=== PATIENT | male | born 1965 | race Caucasian/White ===

== ENCOUNTER 2017-09-02 13:53 | Emergency (ER) | payer OTHER ==
[2017-09-02 14:26] VITALS: BP 164/87
[2017-09-02] MEDS ORDERED: Lactated Ringers 1,000 ML IV ONE ×2 (14:27→14:33)
--- NOTE | 2017-09-02 14:34 | ERPHSYRPT ---
- History of Present Illness Time Seen by Provider: 09/02/17 14:20 Source: patient Patient Subjective Stated Complaint: pt reports high blood sugar this am-states he was dx yesterday-reports increased thirst and feeling tired-states his mother of dm and he is very worried he will to Triage Nursing Assessment: pt ambulatory to ed very anxious and concerned- denies pain-moving all extremities with ease-resp easy and nonlabored-pupils responsive Physician History: CC: not feeling well Hx: 51 y/o patient of Dr Samuel with newly diagnosed diabetes. He started metformin yesterday and has had three doses. He feels worse, malaise, sugar > 500 so office told him to come to ER. No chest or abd pain. No N/V/D. Polyuria and thristy. He apparently is scheduled for a stress test next week. Vit D low , AIC markedly elevated, triglycerides markedly elevated. Timing/Duration: today Severity: moderate Allergies/Adverse Reactions: Penicillins Allergy (Verified 09/02/17 14:25) mushrooms Allergy (Severe, Uncoded 09/02/17 14:25) Home Medications: Lisinopril/Hydrochlorothiazide [Lisinopril-Hctz 10-12.5 mg Tab] 1 each PO DAILY 04/29/17 [History] Cholecalciferol (Vitamin D3) [Vitamin D] 1,000 unit PO WEEKLY 09/02/17 [ History] Fenofibrate Nanocrystallized [Fenofibrate] 145 mg PO DAILY 09/02/17 [History] Loratadine 10 mg [Claritin 10 mg] 10 mg PO DAILY 09/02/17 [History] Metformin HCl 500 mg [Glucophage 500 MG] 500 mg PO BID 09/02/17 [History] Ropinirole HCl 0.5 mg [Requip 0.5 MG] 0.5 mg PO UD 09/02/17 [History] Hx Tetanus, Diphtheria Vaccination/Date Given: No Hx Influenza Vaccination/Date Given: No Hx Pneumococcal Vaccination/Date Given: No Immunizations Up to Date: Yes - Review of Systems Constitutional: Fatigue, Malaise, Weakness, No Fever, No Chills Eyes: No Symptoms, No Vision Changes Ears, Nose, & Throat: No Symptoms Respiratory: No Cough, No Dyspnea Cardiac: No Chest Pain, No Palpitations, No Syncope Abdominal/Gastrointestinal: No Abdominal Pain, No Nausea, No Vomiting, No Diarrhea Genitourinary Symptoms: Frequency, No Dysuria Musculoskeletal: No Back Pain Skin: No Rash All Other Systems: Reviewed and Negative - Past Medical History Pertinent Past Medical History: Yes Neurological History: No Pertinent History ENT History: No Pertinent History Cardiac History: No Pertinent History Respiratory History: No Pertinent History Endocrine Medical History: Diabetes Type II Musculoskeletal History: No Pertinent History GI Medical History: No Pertinent History History: No Pertinent History Psycho-Social History: Anxiety Male Reproductive Disorders: No Pertinent History - Past Surgical History Past Surgical History: No - Social History Smoking Status: Current every day smoker How long have you smoked: yrs Exposure to second hand smoke: Yes Drug Use: none 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) - Nursing Vital Signs Nursing Vital Signs: Initial Vital Signs Temperature 98.7 F 09/02/17 14:20 Pulse Rate 110 H 09/02/17 14:20 Respiratory Rate 18 09/02/17 14:20 Blood Pressure 164/87 09/02/17 14:20 O2 Sat by Pulse Oximetry 98 09/02/17 14:20 Pain Scale Pain Intensity 0 - Physical Exam General Appearance: alert Eye Exam: PERRL/EOMI Ears, Nose, Throat Exam: normal ENT inspection, dry mucous membranes Neck Exam: normal inspection, non-tender, supple Respiratory Exam: normal breath sounds Cardiovascular Exam: regular rate/rhythm, No murmur Gastrointestinal/Abdomen Exam: soft, No tenderness, No distention Male Genitalia Exam: normal genitalia Back Exam: normal inspection, No CVA tenderness Extremity Exam: normal inspection, normal range of motion Neurologic Exam: alert, oriented x 3, cooperative, sensation nml, No motor deficits Skin Exam: warm, dry, No rash SpO2 Interpretation: normal SpO2: 98 Oxygen Delivery: Room Air - Course Nursing assessment & vital signs reviewed: Yes EKG Interpreted by Me: RATE (102), Sinus Rhythm, NORMAL AXIS, NORMAL INTERVALS ( [id number]), Other (borderline qrs widening, nonspecific changes) Ordered Tests: Active Orders 24 hr Category Date Time Status Clean Catch Urine Specimen STAT Care 09/02/17 14:26 Active EKG-ER Only STAT Care 09/02/17 14:26 Active IV Insertion STAT Care 09/02/17 14:26 Active CBC W DIFF Stat Lab 09/02/17 14:00 Completed CMP Routine Lab 09/02/17 Completed Glucose,Critical Care Urgent Lab 09/02/17 14:33 Completed LIPASE Routine Lab 09/02/17 Completed Lactic Acid Stat Lab 09/02/17 14:33 Completed MAGNESIUM Routine Lab 09/02/17 Completed TROPONIN Q3H Lab 09/02/17 Completed TROPONIN Q3H Lab 09/02/17 17:45 Ordered TROPONIN Q3H Lab 09/02/17 20:45 Ordered TROPONIN Q3H Lab 09/02/17 23:45 Ordered TROPONIN Q3H Lab 09/03/17 02:45 Ordered UA W/RFX UR CULTURE Stat Lab 09/02/17 15:05 Completed VENOUS BLOOD GAS Urgent Lab 09/02/17 14:33 Completed Medication Summary Discontinued Medications Generic Name Dose Route Start Last Admin Trade Name Freq PRN Reason Stop Dose Admin Glipizide 5 mg 09/02/17 16:18 Glucotrol Xl 5 Mg PO 09/02/17 16:19 STAT ONE Lactated Ringer's 1,000 mls @ 999 mls/hr 09/02/17 14:27 09/02/17 14:48 Lactated Ringers IV 09/02/17 15:27 999 mls/hr .Q1H1M ONE Administration Lactated Ringer's Confirm 09/02/17 14:33 Lactated Ringers Administered 09/02/17 14:34 Dose 1,000 mls @ ud IV .STK-MED ONE Insulin Aspart 10 unit 09/02/17 15:06 09/02/17 15:16 Novolog Insulin SQ 09/02/17 15:07 10 unit STAT ONE Administration Insulin Aspart Confirm 09/02/17 15:12 Novolog Insulin Administered 09/02/17 15:13 Dose 10 unit .ROUTE .STK-MED ONE Lab/Rad Data: Laboratory Result Diagrams 09/02/17 14:00 09/02/17 Unknown Laboratory Results 09/02/17 09/02/17 09/02/17 Range/Units Unknown 15:05 14:33 WBC (4.0-10.5) K/mm3 RBC (4.1-5.6) M/mm3 Hgb (12.5-18.0) gm/dl Hct (42-50) % MCV (78-100) fl MCH (26-32) pg MCHC (32-36) g/dl RDW (11.5-14.0) % Plt Count (150-450) K/mm3 MPV (6-9.5) fl Gran % (36.0-66.0) % Lymphocytes % (24.0-44.0) % Monocytes % (0.0-12.0) % Eosinophils % (0.00-5.0) % Basophils % (0.0-0.4) % Basophils # (0-0.4) VBG pH (7.32-7.42) VBG pCO2 at Pat Temp (42-55) mm/Hg VBG pO2 at Pat Temp (25-40) mm/Hg VBG HCO3 (22-28) meq/L VBG O2 Sat (Marisel) (95-100) VBG Base Excess (-2.0-2.0) VBG Hemoglobin VBG Carboxyhemoglobin (0.0-6.9) % T HGB POC Potassium (3.5-5.1) Glucose 434 H (70-110) Sodium 133 L (137-145) mmol/L Potassium 4.6 (3.5-5.1) mmol/L Chloride 97 L (98-107) mEq/L Carbon Dioxide 20 L (22-30) mmol/L Anion Gap 21.0 H (5-15) MEQ/L BUN 27 H (9-20) mg/dl Creatinine 1.02 (0.66-1.25) mg/dl Estimated GFR > 60 ML/MIN Lactic Acid 1.6 (0.4-2.0) Calcium 9.6 (8.4-10.2) mg/dL Magnesium 1.8 (1.6-2.3) mg/dL Total Bilirubin 0.90 (0.2-1.3) mg/d? AST 20 (17-59) U/L ALT 19 (0-50) U/L Alkaline Phosphatase 156 H (38-126) U/L Troponin I < 0.012 (0.000-0.034) ng/ml Serum Total Protein 7.7 (6.3-8.2) mg/dl Albumin 4.4 (3.5-5.0) g/dl Lipase 101 (23-300) U/L Ur Collection Type CCMS Urine Color YELLOW (YELLOW) Urine Appearance CLEAR (CLEAR) Urine pH 5.0 (5-6) Ur Specific [place] 1.015 (1.005-1.025) Urine Protein NEGATIVE (Negative) Urine Ketones MODERATE (NEGATIVE) Urine Blood NEGATIVE (0-5) Shabbir/ul Urine Nitrite NEGATIVE (NEGATIVE) Urine Bilirubin NEGATIVE (NEGATIVE) Urine Urobilinogen NORMAL (0-1) mg/dL Ur Leukocyte Esterase NEGATIVE (NEGATIVE) Urine Culture Reflexed NO (NO) Urine Glucose 1000 (NEGATIVE) mg/dL Specimen Received T@[id number] 09/02/17 09/02/17 Range/Units 14:33 14:00 WBC 8.7 (4.0-10.5) K/mm3 RBC 4.67 (4.1-5.6) M/mm3 Hgb 14.7 (12.5-18.0) gm/dl Hct 40.3 L (42-50) % MCV 86.3 (78-100) fl MCH 31.5 (26-32) pg MCHC 36.5 H (32-36) g/dl RDW 12.1 (11.5-14.0) % Plt Count 175 (150-450) K/mm3 MPV 13.3 H (6-9.5) fl Gran % 65.9 (36.0-66.0) % Lymphocytes % 26.1 (24.0-44.0) % Monocytes % 5.5 (0.0-12.0) % Eosinophils % 2.0 (0.00-5.0) % Basophils % 0.5 (0.0-0.4) % Basophils # 0.04 (0-0.4) VBG pH 7.39 (7.32-7.42) VBG pCO2 at Pat Temp 35 L (42-55) mm/Hg VBG pO2 at Pat Temp 49 H (25-40) mm/Hg VBG HCO3 21.2 L (22-28) meq/L VBG O2 Sat (Marisel) 92.9 L (95-100) VBG Base Excess -3.1 L (-2.0-2.0) VBG Hemoglobin 15.5 VBG Carboxyhemoglobin 8.8 H* (0.0-6.9) % T HGB POC Potassium 4.4 (3.5-5.1) Glucose 451 H (70-110) Sodium (137-145) mmol/L Potassium (3.5-5.1) mmol/L Chloride (98-107) mEq/L Carbon Dioxide (22-30) mmol/L Anion Gap (5-15) MEQ/L BUN (9-20) mg/dl Creatinine (0.66-1.25) mg/dl Estimated GFR ML/MIN Lactic Acid (0.4-2.0) Calcium (8.4-10.2) mg/dL Magnesium (1.6-2.3) mg/dL Total Bilirubin (0.2-1.3) mg/d? AST (17-59) U/L ALT (0-50) U/L Alkaline Phosphatase (38-126) U/L Troponin I (0.000-0.034) ng/ml Serum Total Protein (6.3-8.2) mg/dl Albumin (3.5-5.0) g/dl Lipase (23-300) U/L Ur Collection Type Urine Color (YELLOW) Urine Appearance (CLEAR) Urine pH (5-6) Ur Specific [place] (1.005-1.025) Urine Protein (Negative) Urine Ketones (NEGATIVE) Urine Blood (0-5) Shabbir/ul Urine Nitrite (NEGATIVE) Urine Bilirubin (NEGATIVE) Urine Urobilinogen (0-1) mg/dL Ur Leukocyte Esterase (NEGATIVE) Urine Culture Reflexed (NO) Urine Glucose (NEGATIVE) mg/dL Specimen Received - Progress Progress Note: 09/02/17 16:29 Pt stable. He is worried about DM. He is anxious. He is a smoker and was counselled about smoking cessation. No chest pain or cardiac symptoms. Called Dr Justin Samuel and will add glucotrol xl and have office follow up. He has stress test appt scheduled Wednesday and colonoscopy Wednesday next week. Will release with instr. Also suggested diabetic education. Counseled pt/family regarding: lab results, diagnosis, need for follow-up, smoking cessation - Departure Time of Disposition: 16:31 Departure Disposition: Home Clinical Impression: Metabolic syndrome Type 2 diabetes mellitus Qualifiers: Diabetes mellitus complication status: without complication Diabetes mellitus shelter insulin use: without exterminator helper termite use Qualified Code(s): E11.9 - Type 2 diabetes mellitus without complications Condition: Stable Critical Care Time: No Referrals: ROSALIND PAULINO [NON-STAFF PHY W/O PRIVILEGES] - Instructions: Type 2 Diabetes, Quitting Smoking Additional Instructions: See JUWAN Paulino October 09 at 3PM. Stop smoking. Continue metformin 500mg twice a day. Rx glucotrol xl 5mg daily- next dose in AM with breakfast. Check sugar in AM, 2 hours after lunch, and before bedtime and record. Return for any problems or concerns. Prescriptions: Glipizide Xl 5 mg [Glucotrol Xl 5 MG] 5 mg PO DAILY #30 tab
[2017-09-02 14:42] LABS: BASOPHIL % 0.5 % (0.0-0.4); Basophil (Absolute #) 0.04 (0-0.4); Eosinophil (Absolute #) 0.17 (0-0.5); Granulocyte Absolute (ANC) 5.75 (1.4-6.9); Granulocytes % 65.9 % (36.0-66.0); Hematocrit 40.3 % (42-50); Hemoglobin 14.7 gm/dl (12.5-18.0); Lymphocyte (Absolute #) 2.27 (1.0-4.6); Lymphocytes % 26.1 % (24.0-44.0); Mean Cell Volume 86.3 fl (78-100); Mean Corpuscular Hemoglobin 31.5 pg (26-32); Mean Corpuscular Hgb Concent. 36.5 g/dl (32-36); Mean Platelet Volume 13.3 fl (6-9.5); Monocyte (Absolute #) 0.48 (0.0-1.3); Monocytes % 5.5 % (0.0-12.0); Platelet Count 175 K/mm3 (150-450); Red Blood Count 4.67 M/mm3 (4.1-5.6); Red Cell Distribution Width 12.1 % (11.5-14.0); White Blood Count 8.7 K/mm3 (4.0-10.5)
[2017-09-02 14:44] LABS: VBG BASE EXCESS -3.1 (-2.0-2.0); VBG HCO3- 21.2 meq/L (22-28); VBG HEMOGLOBIN 15.5; VBG O2 SATURATION 92.9 (95-100); VBG POTASSIUM 4.4 (3.5-5.1); VBG pH 7.39 (7.32-7.42)
[2017-09-02 14:45] LABS: VBG CARBOXYHEMOGLOBIN 8.8 % T HGB (0.0-6.9)
[2017-09-02 15:02] LABS: ALBUMIN 4.4 g/dl (3.5-5.0); ALKALINE PHOSPHATASE 156 U/L (38-126); BLOOD UREA NITROGEN 27 mg/dl (9-20); CHLORIDE 97 mEq/L (98-107); Calcium 9.6 mg/dL (8.4-10.2); Carbon Dioxide 20 mmol/L (22-30); Creatinine 1 1.02 mg/dl (0.66-1.25); Glucose 434 mg/dL (74-106); LIPASE 101 U/L (23-300); Potassium 4.6 mmol/L (3.5-5.1); SGOT/AST 20 U/L (17-59); SGPT/ALT 19 U/L (0-50); SODIUM 133 mmol/L (137-145); Total Protein 7.7 mg/dl (6.3-8.2)
[2017-09-02] MEDS ORDERED: NovoLOG Insulin SQ ONE (15:06)
[2017-09-02] MEDS ORDERED: NovoLOG Insulin ONE (15:12)
[2017-09-02 15:14] LABS: TROPONIN < 0.012 ng/ml (0.000-0.034)
[2017-09-02 15:18] VITALS: PULSE 99
[2017-09-02 15:25] LABS: Appearance CLEAR (CLEAR); Leukocyte Esterase NEGATIVE (NEGATIVE); Nitrite NEGATIVE (NEGATIVE); Specific Gravity 1.015 (1.005-1.025)
[2017-09-02 15:26] LABS: Glucose 1000 mg/dL (NEGATIVE); Protein,Urine Dip NEGATIVE (Negative)
[2017-09-02 15:27] LABS: Bilirubin NEGATIVE (NEGATIVE); Blood NEGATIVE Ery/ul (0-5); Ketones MODERATE (NEGATIVE); Urobilinogen NORMAL mg/dL (0-1)
[2017-09-02] MEDS ORDERED: Glucotrol Xl 5 MG PO ONE (16:18)
[2017-09-02 16:34] VITALS: O2SAT 98
== END 2017-09-02 17:24 | disposition home or self-care (01) ==
LOC: ED 13:53
DX: E88.81 Metabolic syndrome and other insulin resistance (principal); E11.9 Type 2 diabetes mellitus without complications; Z79.899 Other long term (current) drug therapy
CPT/HCPCS: 36000; 36415; 80053; 81002; 82805; 82947; 82962; 83605; 83690; 83735; 84484; 85025; 93005; 96360; 96372; 99284; 99285; A9270-GY

== ENCOUNTER → 2017-09-10 | Day surgery (SDC) | payer OTHER | LOC: SDC 05:48 | PROVIDERS: ATTEND Family Medicine | DX: Z53.8 Procedure and treatment not carried out for other reasons (principal) ==

== ENCOUNTER 2017-10-15 05:52 | Day surgery (SDC) | payer OTHER ==
[2017-10-15] MEDS ORDERED: Versed 2 MG/2 ML Injection IV ONE (05:53)
[2017-10-15] MEDS ORDERED: DIPRIVAN 200 MG/20 ML IV ONE (05:53)
[2017-10-15] MEDS ORDERED: Lactated Ringers 1,000 ML IV SCH (06:30)
[2017-10-15 09:22] VITALS: BP 105/75; PULSE 64; O2SAT 96
--- NOTE | 2017-10-15 11:45 | OP ---
SURGERY DATE/TIME: 10/15/2017 0756 PREOPERATIVE DIAGNOSIS: Screening exam. POSTOPERATIVE DIAGNOSIS: Multiple colon polyps in rectosigmoid area. PROCEDURE: Colonoscopy with biopsy. SURGEON: Dr. Nunez. ANESTHESIA: MAC. Medications given by anesthesia department. HISTORY: The patient is a 52 year-old white male patient presenting now for screening colonoscopy. He was appraised of the risks of the procedure including the risk of perforation, phlebitis, untoward reaction to medication, bleeding and missed lesions. The patient verbalized his understanding and desired to have the procedure performed. DESCRIPTION OF PROCEDURE: The patient was given the medications by the anesthesia department. He had continuous pulse oximetry, ECG monitoring, intermittent blood pressure monitoring and tidal CO2 monitoring during the examination. He was placed in the left lateral decubitus position. A digital rectal examination was performed and revealed normal anal sphincter tone, no masses and normal prostate. The flexible Olympus pediatric colonoscope was used to intubate the rectum. A view of the colon was developed sequentially to the cecum. Upon insertion and withdrawal, there was noted one small polyp in the transverse colon this is biopsied to rule out any adenomatous change. There were noted to be multiple polyps in the rectosigmoid area including one fairly close to the anal verge. These were measuring approximately 0.5 to 1.2 cm in size. Multiple biopsies were obtained to rule out any evidence of adenomatous change. A retroflex view in the rectum was obtained as well and again was noted the polyps. The scope was removed from the patient who tolerated the procedure well and was sent back to OP recovery in good condition. The prep was noted to be fair.
== END 2017-10-15 09:10 | disposition home or self-care (01) ==
LOC: SDC 05:52
PROVIDERS: ATTEND Family Medicine
PROC: 0DBN8ZX Excision of Sigmoid Colon, Via Natural or Artificial Opening Endoscopic, Diagnostic (ICD-10-PCS; principal; 2017-10-15)
PROC: 0DBL8ZX Excision of Transverse Colon, Via Natural or Artificial Opening Endoscopic, Diagnostic (ICD-10-PCS; 2017-10-15)
DX: K63.5 Polyp of colon (principal); Z12.11 Encounter for screening for malignant neoplasm of colon; E11.9 Type 2 diabetes mellitus without complications; E78.5 Hyperlipidemia, unspecified; I10 Essential (primary) hypertension
CPT/HCPCS: 82962; 88305; J2250; J2704

== ENCOUNTER 2018-03-10 06:36 | Day surgery (SDC) | payer OTHER ==
[~2018-03-10 06:36] MED LIST: Lactated Ringers 1,000 ML IV SCH
[2018-03-10] MEDS ORDERED: DIPRIVAN 200 MG/20 ML IV ONE (06:37)
[2018-03-10] MEDS ORDERED: Lactated Ringers 1,000 ML IV ONE (06:57)
--- NOTE | 2018-03-10 07:44 | HP ---
DATE OF SURGERY: 03/10/2018 ANTICIPATED PROCEDURE: Colonoscopy. HISTORY OF PRESENT ILLNESS: The patient has had multiple rectal polyps and presents for colonoscopy. PAST MEDICAL HISTORY: ALLERGIES: NONE. MEDICATIONS: Lisinopril, Metformin, potassium chloride, ropinirole. PAST SURGICAL HISTORY: None recent. SOCIAL HISTORY: Half pack per day. ETOH negative. FAMILY HISTORY: Negative. REVIEW OF SYSTEMS: Diabetes, heart disease, hypertension. PHYSICAL EXAMINATION: VITAL SIGNS: Normal. CHEST: Clear. COR: Regular. ABDOMEN: No palpable organomegaly or mass. IMPRESSION: History of rectal polyps. PLAN: Colonoscopy.
[2018-03-10 10:12] VITALS: O2SAT 99
[2018-03-10 10:17] VITALS: PULSE 68
[2018-03-10 10:30] VITALS: BP 95/61
--- NOTE | 2018-03-11 15:56 | OP ---
SURGERY DATE: 03/10/18 SURGERY TIME: 911 PREOPERATIVE DIAGNOSIS: 1. MULTIPLE POLYPS. POSTOPERATIVE DIAGNOSIS: 1. 8 POLYPS. PROCEDURE: 1. Colonoscopy complete to cecum with hot polypectomy X 8 submitted in 2 jars, 3 and 5. SURGEON: Spencer Sahu M.D. ANESTHESIA: MAC. COMPLICATIONS: None. CONDITION: Stable. INDICATION: Patient has multiple polyps. Was referred by Dr. Nunez and LOKI Villavicencio. OPERATIVE PROCEDURE: Taken to endoscopy. MAC sedation provided. Scope advanced to the cecum. Circumferential withdrawal. 3 polyps in one area and 5 polyps in another area were taken and submitted in two separate jars. Recommended follow-up in 1 year. This gentleman is quite a polyp former. I would like to do a colonoscopy in 1 year.
== END 2018-03-10 10:30 | disposition home or self-care (01) ==
LOC: SDC 06:36
PROVIDERS: ATTEND Surgery
DX: K63.5 Polyp of colon (principal); Z87.19 Personal history of other diseases of the digestive system; E11.9 Type 2 diabetes mellitus without complications; Z79.4 Long term (current) use of insulin; I51.9 Heart disease, unspecified; I10 Essential (primary) hypertension; Z79.899 Other long term (current) drug therapy; Z72.0 Tobacco use
CPT/HCPCS: 82962; 88305; 94250; J2704

== ENCOUNTER 2020-08-15 09:15 | Day surgery (SDC) | payer OTHER ==
--- NOTE | 2020-08-08 08:13 | HP ---
DATE OF SURGERY: 08/15/2020 HISTORY OF PRESENT ILLNESS: The patient is a 54 year-old male who presents with complaints of some bloating, some nausea and vomiting. It has been going on for a couple of weeks. He is not sure of triggers. He denies any specific gallbladder attacks. He states has some diffuse upper abdominal pain particularly in the mid to right upper quadrant. His HIDA scan was 26%. PAST MEDICAL HISTORY: Diabetes, hypertension, fibromyalgia, neuropathy. PAST SURGICAL HISTORY: None. ALLERGIES: PENICILLIN. MUSHROOMS. MEDICATIONS: Amlodipine, vitamin D, Fenofibrate nanocrystallized, fluticasone. FAMILY HISTORY: Skin cancer. Heart disease. Diabetes. Hypertension. SOCIAL HISTORY: Former smoker, rarely uses alcohol. REVIEW OF SYSTEMS: CONSTITUTIONAL: Denies fever or chills. CHEST: Denies shortness of breath. CVS: Denies chest pain. ABDOMEN: Reports upper abdominal pain, nausea, vomiting. Denies diarrhea, constipation or rectal bleeding. INTEGUMENTARY: Negative. PHYSICAL EXAMINATION: GENERAL: No acute distress. CHEST: Nonlabored. No shortness of breath. CVS: Regular rate and rhythm. ABDOMEN: Soft, nontender to palpation. EXTREMITIES: No edema. NEUROLOGIC: Alert. PSYCHIATRIC: Appropriate. IMPRESSION: Biliary dyskinesia PLAN: Laparoscopic cholecystectomy with Dr. Spencer Sahu. As dictated by Fanta Cruz NP.
[~2020-08-15 09:15] MED LIST changes: +Lactated Ringers 0 ML IV ONE; -Lactated Ringers 1,000 ML IV SCH; +Sensorcaine 0.25% 10 ML ONE
[2020-08-15] MEDS ORDERED: Sodium Chloride 0.9% 1000 ML 1,000 ML IV SCH (09:45)
[2020-08-15] MEDS ORDERED: Levofloxacin 500MG/100ML D5W 500 MG/100 ML BAG IV ONE (09:46)
[2020-08-15] MEDS ORDERED: CLINDAMYCIN-D5W 900 MG/50 ML*** 900 MG/50 ML BAG IV SCH (10:00)
[2020-08-15 11:17] LABS: ANION GAP 11.5 MEQ/L (5-15); Calcium 9.3 mg/dL (8.4-10.2); Creatinine 1 1.68 mg/dL (0.66-1.25); EST GLOMERULAR FILTRATION RATE 45.7 ML/MIN; Potassium 4.5 mmol/L (3.5-5.1)
[2020-08-15] MEDS ORDERED: Zemuron 100 MG/10 ML ONE (12:29)
[2020-08-15] MEDS ORDERED: DIPRIVAN 200 MG/20 ML IV ONE (12:29)
[2020-08-15] MEDS ORDERED: Versed 2 MG/2 ML Injection ONE (12:30)
[2020-08-15] MEDS ORDERED: SUBLIMAZE 250 MCG/5 ML ONE (12:30)
[2020-08-15] MEDS ORDERED: Sodium Chloride 0.9% 1000 ML 1,000 ML ONE (12:39)
[2020-08-15] MEDS ORDERED: BRIDION 200MG/2ML IV ONE (13:07)
--- NOTE | 2020-08-15 13:18 | OP ---
SURGERY DATE/TIME: 08/15/2020 1225 PREOPERATIVE DIAGNOSIS: Gallbladder dyskinesia. POSTOPERATIVE DIAGNOSIS: Gallbladder dyskinesia with a very small cystic duct 0.5 mm. PROCEDURE: Laparoscopic cholecystectomy. SURGEON: Dr. Spencer Sahu. REDUCING SYSTEM OPERATOR: ISAAC Prater. ANESTHESIA: General. ESTIMATED BLOOD LOSS: None. COMPLICATIONS: None. CONDITION: Stable. INDICATIONS: A patient with gallbladder dyskinesia. DESCRIPTION OF PROCEDURE AND FINDINGS: Taken to surgery. General anesthetic, routine prep and drape. Veress needle inserted. Opening pressure of 1, insufflating pressure 14. Four - 5's. Good visualization. Cystic duct defined. Cystic artery small and it was ligatured. Cystic duct was less than 1 mm, triply clipped and transected. Clips noted across and well approximated. Gallbladder rolled out of gallbladder fossa. The gallbladder delivered through the umbilical port with slight widening. Hole closure device used with 0 Vicryl. Field was totally dry. CO2 exsufflated. Skin closed with 4-0 Vicryl and Steri-Strips. The patient tolerated the procedure satisfactorily.
[2020-08-15] MEDS ORDERED: SUBLIMAZE 100 MCG/2 ML ONE (13:31)
[2020-08-15] MEDS ORDERED: Hydromorphone 1 mg/ml Injection ONE (13:31)
[2020-08-15] MEDS ORDERED: MORPHINE SULFATE 10 MG/ML ONE (13:44)
[2020-08-15 15:15] VITALS: BP 136/97; PULSE 79; O2SAT 97
== END 2020-08-15 15:05 | disposition home or self-care (01) ==
LOC: SDC 09:15
PROVIDERS: ATTEND Surgery
DX: K82.8 Other specified diseases of gallbladder (principal); E11.9 Type 2 diabetes mellitus without complications; I10 Essential (primary) hypertension; M79.7 Fibromyalgia; Z79.899 Other long term (current) drug therapy
CPT/HCPCS: 36415; 80048; J1170; J1956; J2250; J2270; J2704; J3010

== ENCOUNTER 2024-06-26 10:03 | Emergency (ER) | payer OTHER ==
--- NOTE | 2024-06-26 10:11 | ERPHSYRPT ---
- History of Present Illness Time Seen by Provider: 06/26/24 10:11 Source: patient, family Exam Limitations: no limitations Physician History: This is a 58-year-old white male patient of nurse practitioner Jefferson who arrives by private vehicle with a complaint of anxiety and insomnia. The insomnia has been present for a week. Patient's nurse practitioner is out of town for 1 week per his report. Patient denies chest pain. Patient denies shortness of breath. Patient wants to have his antidepressant medication change. He is aware that this will not happen today in the emergency department. Patient is not suicidal. Patient is not homicidal. Patient has no complaints of headache. There is been no visual changes. Patient is a daily smoker of tobacco. Patient has a history of diabetes, hypertension, hyperlipidemia, chronic renal disease and peripheral neuropathy. Timing/Duration: week(s) (1) Severity of Symptoms-Max: mild (To moderate) Severity of Symptoms-Current: mild (To moderate) Context related to: other (Insomnia and anxiety) Suicidal thoughts: other (No suicidal or homicidal thoughts) Associated Symptoms: anxiety, insomnia Previous symptoms: recently seen, recently treated Allergies/Adverse Reactions: Penicillins Allergy (Verified 06/26/24 10:25) mushrooms Allergy (Severe, Uncoded 06/26/24 10:25) Home Medications: Fenofibrate Nanocrystallized [Fenofibrate] 145 mg PO DAILY 09/02/17 [History] Ropinirole HCl 0.5 mg [Requip 0.5 MG] 1 mg PO HS 09/02/17 [History] Ergocalciferol (Vitamin D2) [Vitamin D] 1 tab PO WEEKLY 10/15/17 [History] Amlodipine Besylate 5 mg [Norvasc 5 mg] 5 mg PO DAILY 08/05/20 [History] Pravastatin Sodium 40 mg PO DAILY 08/05/20 [History] Hydroxyzine HCl 25 mg [Atarax 25 mg] 25 mg PO Q8H PRN PRN 06/26/24 [History] Sitagliptin Phosphate 50 MG [Januvia 50 MG] 100 mg PO DAILY 06/26/24 [History] Hx Tetanus, Diphtheria Vaccination/Date Given: No Hx Influenza Vaccination/Date Given: No Hx Pneumococcal Vaccination/Date Given: No Travel Risk - International Travel Have you traveled outside of the country in past 3 weeks: No - Emerging Infectious Disease Are you exhibiting symptoms associated with any current EIDs: No - Past Medical History Pertinent Past Medical History: Yes Neurological History: Peripheral Neuropathy ENT History: Other Cardiac History: High Cholesterol, Hypertension Respiratory History: No Pertinent History Endocrine Medical History: Diabetes Type II Musculoskeletal History: Arthritis GI Medical History: No Pertinent History History: Renal Disease Psycho-Social History: Anxiety Male Reproductive Disorders: No Pertinent History 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) - Review of Systems Constitutional: No Symptoms Eyes: No Symptoms Ears, Nose, & Throat: No Symptoms Respiratory: No Symptoms Cardiac: No Symptoms Abdominal/Gastrointestinal: No Symptoms Genitourinary Symptoms: No Symptoms Musculoskeletal: No Symptoms Skin: No Symptoms Neurological: No Symptoms (Insomnia) Psychological: Anxiety, Other, No Suicidal Ideations, No Homicidal Ideations Endocrine: No Symptoms Hematologic/Lymphatic: No Symptoms Immunological/Allergic: No Symptoms All Other Systems: Reviewed and Negative - Nursing Vital Signs Nursing Vital Signs: Initial Vital Signs Temperature 97.8 F 06/26/24 10:20 Pulse Rate 91 H 06/26/24 10:20 Respiratory Rate 21 06/26/24 10:20 Blood Pressure 144/89 06/26/24 10:20 O2 Sat by Pulse Oximetry 99 06/26/24 10:20 Pain Scale Pain Intensity 0 - Physical Exam General Appearance: no apparent distress, alert, anxiety Eyes, Ears, Nose, Throat Exam: normal ENT inspection, moist mucous membranes Neck Exam: normal inspection, non-tender, supple, full range of motion Respiratory Exam: normal breath sounds, lungs clear, airway intact, No chest tenderness, No respiratory distress Cardiovascular Exam: regular rate/rhythm, normal heart sounds, normal peripheral pulses Gastrointestinal/Abdominal Exam: soft, normal bowel sounds, No tenderness Extremities Exam: normal inspection, normal range of motion, No evidence of injury Neurological Exam: alert, oriented x 3, anxious, depressed affect Appearance: appropriate appearance, appropriate insight, neat Behavior/Eye Contact/Speech: alert & cooperative, good eye contact, normal speech Thoughts/Hallucinations: normal thought pattern, no apparent hallucination Skin Exam: normal color, warm, dry SpO2 Interpretation: normal O2 Delivery: Room Air Ordered Tests: Active Orders 24 hr Category Date Time Status ACETAMINOPHEN Stat Lab 06/26/24 10:40 Completed CBC W DIFF Stat Lab 06/26/24 10:40 Completed CMP Stat Lab 06/26/24 10:40 Completed ETHYL ALCOHOL Stat Lab 06/26/24 10:40 Completed SALICYLATE Stat Lab 06/26/24 10:40 Completed TSH [TSH, 3RD Generation] Stat Lab 06/26/24 10:40 Completed UA W/RFX UR CULTURE Stat Lab 06/26/24 10:51 Completed Urine Triage Profile Stat Lab 06/26/24 10:51 Completed Lab/Rad Data: Laboratory Result Diagrams 06/26/24 10:40 06/26/24 10:40 Laboratory Results 06/26/24 06/26/24 06/26/24 Range/Units 10:51 10:51 10:40 WBC (4.23-9.07) x10^3/uL RBC (4.63-6.08) x10^6/uL Hgb (13.7-17.5) g/dL Hct (40.1-51.0) % MCV (79.0-92.2) fL MCH (25.7-32.2) pg MCHC (32.3-36.5) g/dL RDW (11.6-14.4) % Plt Count (163-337) x10^3/uL MPV (9.4-12.4) fL Gran % (34.0-67.9) % Immature Gran % (Auto) (0.001-0.429) % Nucleat RBC Rel Count (0.00-0.2) % Eos # (Auto) (0.04-0.54) x10^3/uL Immature Gran # (Auto) (0.001-0.031) x10^3u/L Absolute Lymphs (auto) (1.32-3.57) x10^3/uL Absolute Monos (auto) (0.30-0.82) x10^3/uL Absolute Nucleated RBC (0.00-0.012) x10^3u/L Lymphocytes % (21.8-53.1) % Monocytes % (5.3-12.2) % Eosinophils % (0.8-7.0) % Basophils % (0.2-1.2) % Absolute Granulocytes (1.78-5.38) x10^3/uL Basophils # (0.01-0.08) x10^3/uL Sodium (135-145) mmol/L Potassium (3.5-5.1) mmol/L Chloride (98-107) mmol/L Carbon Dioxide (22-30) mmol/L Anion Gap (5-15) MEQ/L BUN (9-20) mg/dL Creatinine (0.66-1.25) mg/dL Estimated GFR ML/MIN Glucose (74-106) mg/dL Calcium (8.4-10.2) mg/dL Total Bilirubin (0.2-1.3) mg/dL AST (17-59) U/L ALT (0-50) U/L Alkaline Phosphatase (38-126) U/L Serum Total Protein (6.3-8.2) g/dL Albumin (3.5-5.0) g/dL Free T4 1.41 (0.78-2.19) ng/dL TSH 3rd Generation (0.470-4.680) mIU/L Urine Color Yellow (Yellow) Urine Appearance Clear (Clear) Urine pH 6.0 (4.6-8.0) Ur Specific [place] <=1.005 (1.005-1.030) Urine Protein Negative (Negative) Urine Glucose (UA) 100 A (Negative) mg/dL Urine Ketones Negative (Negative) Urine Blood Negative (Negative) Urine Nitrite Negative (Negative) Urine Bilirubin Negative (Negative) Urine Urobilinogen 0.2 (0.2) mg/dL Ur Leukocyte Esterase Negative (Negative) U Hyaline Cast (Auto) NONE SEEN (0-2) /LPF Urine Microscopic RBC 0-2 (0-5) /HPF Urine Microscopic WBC 0-2 (0-5) /HPF Ur Epithelial Cells None Seen (None Seen) /HPF Urine Bacteria None Seen (None Seen) /HPF Urine Culture Reflexed NO (NO) Salicylates (2-20) mg/dL Urine Opiates Level NEGATIVE (NEGATIVE) Ur Methadone NEGATIVE (NEGATIVE) Acetaminophen (10-30) ug/ml Urine Barbiturates NEGATIVE (NEGATIVE) Ur Phencyclidine (PCP) NEGATIVE (NEGATIVE) Urine Amphetamine NEGATIVE (NEGATIVE) U Benzodiazepine Level NEGATIVE (NEGATIVE) Urine Cocaine NEGATIVE (NEGATIVE) Urine Marijuana (THC) NEGATIVE (NEGATIVE) Ethyl Alcohol (0-10) mg/dL 06/26/24 06/26/24 06/26/24 Range/Units 10:40 10:40 10:40 WBC 10.4 H (4.23-9.07) x10^3/uL RBC 4.79 (4.63-6.08) x10^6/uL Hgb 14.9 (13.7-17.5) g/dL Hct 42.6 (40.1-51.0) % MCV 88.9 (79.0-92.2) fL MCH 31.1 (25.7-32.2) pg MCHC 35.0 (32.3-36.5) g/dL RDW 12.4 (11.6-14.4) % Plt Count 198 (163-337) x10^3/uL MPV 11.5 (9.4-12.4) fL Gran % 83.8 H (34.0-67.9) % Immature Gran % (Auto) 0.6 H (0.001-0.429) % Nucleat RBC Rel Count 0.0 (0.00-0.2) % Eos # (Auto) 0.05 (0.04-0.54) x10^3/uL Immature Gran # (Auto) 0.06 H (0.001-0.031) x10^3u/L Absolute Lymphs (auto) 1.03 L (1.32-3.57) x10^3/uL Absolute Monos (auto) 0.50 (0.30-0.82) x10^3/uL Absolute Nucleated RBC 0.00 (0.00-0.012) x10^3u/L Lymphocytes % 10.0 L (21.8-53.1) % Monocytes % 4.8 L (5.3-12.2) % Eosinophils % 0.5 L (0.8-7.0) % Basophils % 0.3 (0.2-1.2) % Absolute Granulocytes 8.68 H (1.78-5.38) x10^3/uL Basophils # 0.03 (0.01-0.08) x10^3/uL Sodium 137 (135-145) mmol/L Potassium 3.9 (3.5-5.1) mmol/L Chloride 105 (98-107) mmol/L Carbon Dioxide 26 (22-30) mmol/L Anion Gap 10.0 (5-15) MEQ/L BUN 12 (9-20) mg/dL Creatinine 1.15 (0.66-1.25) mg/dL Estimated GFR 74.2 ML/MIN Glucose 176 H (74-106) mg/dL Calcium 9.6 (8.4-10.2) mg/dL Total Bilirubin 0.80 (0.2-1.3) mg/dL AST 28 (17-59) U/L ALT 23 (0-50) U/L Alkaline Phosphatase 80 (38-126) U/L Serum Total Protein 7.9 (6.3-8.2) g/dL Albumin 4.8 (3.5-5.0) g/dL Free T4 (0.78-2.19) ng/dL TSH 3rd Generation 1.370 (0.470-4.680) mIU/L Urine Color (Yellow) Urine Appearance (Clear) Urine pH (4.6-8.0) Ur Specific [place] (1.005-1.030) Urine Protein (Negative) Urine Glucose (UA) (Negative) mg/dL Urine Ketones (Negative) Urine Blood (Negative) Urine Nitrite (Negative) Urine Bilirubin (Negative) Urine Urobilinogen (0.2) mg/dL Ur Leukocyte Esterase (Negative) U Hyaline Cast (Auto) (0-2) /LPF Urine Microscopic RBC (0-5) /HPF Urine Microscopic WBC (0-5) /HPF Ur Epithelial Cells (None Seen) /HPF Urine Bacteria (None Seen) /HPF Urine Culture Reflexed (NO) Salicylates < 1.0 L (2-20) mg/dL Urine Opiates Level (NEGATIVE) Ur Methadone (NEGATIVE) Acetaminophen < 10 L (10-30) ug/ml Urine Barbiturates (NEGATIVE) Ur Phencyclidine (PCP) (NEGATIVE) Urine Amphetamine (NEGATIVE) U Benzodiazepine Level (NEGATIVE) Urine Cocaine (NEGATIVE) Urine Marijuana (THC) (NEGATIVE) Ethyl Alcohol < 10 (0-10) mg/dL - Progress Progress: unchanged Progress Note: 06/26/24 10:59 My medical decision making and the assignment of moderate complexity to this patient's medical issue today is based on review of the patient's past medical history, review the patient's medication list, reviewed patient drug allergy list, history present illness and physical findings on examination. The workup in this patient includes CBC, CMP, magnesium level, free T4, TSH, urinalysis, urine drug screen. Differential diagnosis includes but is not limited to anxiety, depression, electrolyte abnormalities, dehydration, urinary tract infection, illicit drug use 06/26/24 11:44 I interpreted the patient's laboratory data results. Based on the laboratory data results the patient does not have any acute or emergent medical issue Counseled pt/family regarding: lab results, diagnosis, need for follow-up Medical Desision Making - Diagnostic Testing Diagnostic test were ordered, analyzed, and reviewed by me: Yes - Risk of complications The pt has a mod risk of morbidity or mortality based on: Need for prescription drug management - Departure Departure Disposition: Home Clinical Impression: Anxiety, Depression, Insomnia Condition: Stable Critical Care Time: No Referrals: ROSALIND SAN NP [Primary Care Provider] - Follow up/PCP as directed Additional Instructions: Drink plenty of clear liquids. Only use your anxiety medicine morning and noon. Use your trazodone medication at night only as needed for 3 separate nights. Call your prescribing provider today, 06/26/2024, to make arrangements for follow-up appointment for further evaluation and management. Prescriptions: Trazodone HCl 25 mg PO QHS PRN #1.5 tablet MDD 25 mg PRN Reason: Insomnia
[2024-06-26 10:36] VITALS: TEMP 97.8
[2024-06-26 10:55] LABS: Absolute Neutrophil Ct (ANC) 8.68 x10^3/uL (1.78-5.38); BASOPHIL % 0.3 % (0.2-1.2); Basophil (Absolute #) 0.03 x10^3/uL (0.01-0.08); Eosinophil % 0.5 % (0.8-7.0); Eosinophil (Absolute #) 0.05 x10^3/uL (0.04-0.54); Hematocrit 42.6 % (40.1-51.0); Hemoglobin 14.9 g/dL (13.7-17.5); IMMATURE GRAN # 0.06 x10^3u/L (0.001-0.031); IMMATURE GRAN % 0.6 % (0.001-0.429); Lymphocyte (Absolute #) 1.03 x10^3/uL (1.32-3.57); Mean Cell Volume 88.9 fL (79.0-92.2); Mean Corpuscular Hemoglobin 31.1 pg (25.7-32.2); Mean Platelet Volume 11.5 fL (9.4-12.4); Monocytes % 4.8 % (5.3-12.2); Neutrophil % 83.8 % (34.0-67.9); Platelet Count 198 x10^3/uL (163-337); Red Blood Count 4.79 x10^6/uL (4.63-6.08); Red Cell Distribution Width 12.4 % (11.6-14.4); White Blood Count 10.4 x10^3/uL (4.23-9.07)
[2024-06-26 11:05] LABS: Appearance Clear (Clear); Bacteria None Seen /HPF (None Seen); Bilirubin Negative (Negative); Blood Negative (Negative); Epithelial Cells None Seen /HPF (None Seen); Glucose, Urine 100 mg/dL (Negative); Hyaline Casts NONE SEEN /LPF (0-2); Ketones Negative (Negative); Leukocyte Esterase Negative (Negative); Nitrite Negative (Negative); Protein,Urine Dip Negative (Negative); RBC 0-2 /HPF (0-5); Specific Gravity <=1.005 (1.005-1.030); Urobilinogen 0.2 mg/dL (0.2); WBC 0-2 /HPF (0-5)
[2024-06-26 11:06] LABS: ACETAMINOPHEN < 10 ug/ml (10-30); ALBUMIN 4.8 g/dL (3.5-5.0); ALKALINE PHOSPHATASE 80 U/L (38-126); BLOOD UREA NITROGEN 12 mg/dL (9-20); CHLORIDE 105 mmol/L (98-107); Calcium 9.6 mg/dL (8.4-10.2); Carbon Dioxide 26 mmol/L (22-30); Creatinine 1 1.15 mg/dL (0.66-1.25); EST GLOMERULAR FILTRATION RATE 74.2 ML/MIN; ETHYL ALCOHOL < 10 mg/dL (0-10); Glucose 176 mg/dL (74-106); Potassium 3.9 mmol/L (3.5-5.1); SALICYLATE < 1.0 mg/dL (2-20); SGOT/AST 28 U/L (17-59); SGPT/ALT 23 U/L (0-50); SODIUM 137 mmol/L (135-145); Total Protein 7.9 g/dL (6.3-8.2)
[2024-06-26 11:13] VITALS: BP 143/95
[2024-06-26 11:29] LABS: Amphetamine,Urine NEGATIVE (NEGATIVE); Barbiturate,Urine NEGATIVE (NEGATIVE); Benzodiazepine,Urine NEGATIVE (NEGATIVE); Cocaine,Urine NEGATIVE (NEGATIVE); Methadone,Urine NEGATIVE (NEGATIVE); Opiate,Urine NEGATIVE (NEGATIVE); PCP,Urine NEGATIVE (NEGATIVE); THC,Urine NEGATIVE (NEGATIVE)
[2024-06-26 11:56] VITALS: PULSE 72; RESP 15; O2SAT 97
== END 2024-06-26 12:08 | disposition home or self-care (01) ==
LOC: ED 10:03
DX: G47.00 Insomnia, unspecified (principal); F41.9 Anxiety disorder, unspecified; F32.A Depression, unspecified; E11.42 Type 2 diabetes mellitus with diabetic polyneuropathy; E11.22 Type 2 diabetes mellitus with diabetic chronic kidney disease; I12.9 Hypertensive chronic kidney disease with stage 1 through stage 4 chronic kidney disease, or unspecified chronic kidney disease; N18.9 Chronic kidney disease, unspecified; E78.5 Hyperlipidemia, unspecified; Z79.84 Long term (current) use of oral hypoglycemic drugs; Z79.899 Other long term (current) drug therapy; Z72.0 Tobacco use
CPT/HCPCS: 36415; 80053; 80143; 80179; 80307; 81001; 82077; 84439; 84443; 85025; 99282; 99284